=== PATIENT | male | born 1940 | race Caucasian/White ===

== ENCOUNTER → 2020-12-19 | Outpatient (CLI) | payer MEDICARE, OTHER ==
[~2020-12-19] MED LIST: ALPRAZOLAM0.5 MG PO; ASPIRIN EC81 MG PO; ELIQUIS 2.5 MG2.5 MG PO; METOPROLOL TART25 MG PO; MOBIC15 MG PO; NORVASC2.5 MG PO; OMEPRAZOLE20 MG PO; PRAVASTATIN SOD40 MG PO; ROPINIROLE; ULTRAM50 MG PO
== END ==
LOC: HEART 5 12-15 07:30 → ECHO 09:15 → HEART 5 09:15 → ECHO 14:26
DX: I25.10 Atherosclerotic heart disease of native coronary artery without angina pectoris (principal); I10 Essential (primary) hypertension; I08.3 Combined rheumatic disorders of mitral, aortic and tricuspid valves; I27.20 Pulmonary hypertension, unspecified
CPT/HCPCS: ECHO; 93306

== ENCOUNTER → 2020-12-21 | Outpatient (CLI) | payer MEDICARE, OTHER ==
[2020-12-21 09:28] LABS: HEMOGLOBIN 15.2 gm/dl (14.0-17.5); RED BLOOD COUNT 4.65 M/UL (4.20-5.50); WHITE BLOOD COUNT 6.1 K/UL (4.5-11.0)
[2020-12-21 10:04] LABS: BUN/CREATININE RATIO 21 (0-10)
== END ==
LOC: OPSV2 08:00 → EDSTATUS 08:00 → OPSV2 08:30
PROVIDERS: Orthopaedic Surgery
DX: Z01.812 Encounter for preprocedural laboratory examination (principal); Z01.810 Encounter for preprocedural cardiovascular examination; M16.11 Unilateral primary osteoarthritis, right hip; R94.31 Abnormal electrocardiogram [ECG] [EKG]
CPT/HCPCS: 36415; 80048; 81001; 85025; 87081; 93005

== ENCOUNTER → 2021-01-03 | Outpatient (CLI) | payer MEDICARE, OTHER ==
[2021-01-03 10:29] LABS: BUN/CREATININE RATIO 17 (0-10)
== END ==
LOC: LAB 08:55
PROVIDERS: Orthopaedic Surgery
DX: Z01.812 Encounter for preprocedural laboratory examination (principal); Z01.83 Encounter for blood typing
CPT/HCPCS: 36415; 80048; 86850; 86900; 86901

== ENCOUNTER 2021-01-04 09:03 | Day surgery (SDC) | payer MEDICARE, OTHER ==
[~2021-01-04] VITALS: Ht 182.9 cm; Wt 104.3 kg
[~2021-01-04 09:03] MED LIST changes: -ELIQUIS 2.5 MG2.5 MG PO
[2021-01-04] MEDS ORDERED: ULTRAM50 MG PO (09:11)
[2021-01-05 02:30] LABS: HEMOGLOBIN 13.3 gm/dl (14.0-17.5); RED BLOOD COUNT 4.05 M/UL (4.20-5.50); WHITE BLOOD COUNT 11.1 K/UL (4.5-11.0)
[2021-01-06 05:02] LABS: HEMOGLOBIN 11.5 gm/dl (14.0-17.5); WHITE BLOOD COUNT 12.3 K/UL (4.5-11.0)
[2021-01-06 05:03] LABS: RED BLOOD COUNT 3.5 M/UL (4.20-5.50)
[2021-01-06 05:15] LABS: BUN/CREATININE RATIO 24 (0-10)
[2021-01-06] MEDS ORDERED: ELIQUIS 2.5 MG2.5 MG PO (08:49)
== END 2021-01-06 12:29 | disposition home or self-care (01) ==
LOC: OR 09:03 → EDSTATUS 15:00 → M/S 17:53 → OR 01-06 12:29
PROVIDERS: Orthopaedic Surgery
DX: M16.11 Unilateral primary osteoarthritis, right hip (principal); I25.10 Atherosclerotic heart disease of native coronary artery without angina pectoris; I10 Essential (primary) hypertension; E78.5 Hyperlipidemia, unspecified; K21.9 Gastro-esophageal reflux disease without esophagitis; G89.29 Other chronic pain; M54.9 Dorsalgia, unspecified; E66.9 Obesity, unspecified; Z68.27 Body mass index [BMI] 27.0-27.9, adult; Z95.1 Presence of aortocoronary bypass graft; Z88.6 Allergy status to analgesic agent; Z88.5 Allergy status to narcotic agent; Z79.82 Long term (current) use of aspirin; Z79.899 Other long term (current) drug therapy
CPT/HCPCS: 0; 36415; 72170; 73502; 76000; 80048; 85025; 97110-GP-CQ; 97116; 97116-GP-CQ; 97161; 97166; 97535; C1776; J0171; J0592; J0690; J1100; J1170; J2001; J2405; J2704; J2710; J2795; J3370; J7030; J7050; J7120

== ENCOUNTER → 2022-03-15 | Outpatient (CLI) | payer MEDICARE ==
[~2022-03-15] MED LIST changes: +ELIQUIS 2.5 MG2.5 MG PO
== END ==
LOC: ECHO 09:29 → NM 13:00
DX: I70.213 Atherosclerosis of native arteries of extremities with intermittent claudication, bilateral legs (principal); I50.42 Chronic combined systolic (congestive) and diastolic (congestive) heart failure; M79.609 Pain in unspecified limb
CPT/HCPCS: ECHO; 78452; 93017; 93306; 93925; A9502; J2785